=== PATIENT | male | born 1965 | race Hispanic/Latino ===

== ENCOUNTER 2023-09-08 08:47 | Emergency (ER) | payer OTHER ==
[2023-09-08] MEDS ORDERED: predniSONE 20 MG TAB ONE (09:21)
== END 2023-09-08 09:28 | disposition home or self-care (01) ==
LOC: MADERS 08:47
DX: M10.9 Gout, unspecified (principal); F17.210 Nicotine dependence, cigarettes, uncomplicated; I10 Essential (primary) hypertension; Z79.899 Other long term (current) drug therapy
CPT/HCPCS: 99283; J7512

== ENCOUNTER 2024-07-23 19:54 | Emergency (ER) | payer OTHER ==
[2024-07-23] MEDS ORDERED: HYDROcodone/Acetaminophen 5/325 mg Tablet ONE (20:07)
[2024-07-23] MEDS ORDERED: Ketorolac Tromethamine 30 MG (1 mL) VIAL ONE (20:07)
== END 2024-07-23 20:30 | disposition home or self-care (01) ==
LOC: MADERS 19:54
DX: M10.9 Gout, unspecified (principal); I10 Essential (primary) hypertension; F17.290 Nicotine dependence, other tobacco product, uncomplicated
CPT/HCPCS: 96372; 99406; J1885